=== PATIENT | male | born 1955 | race Caucasian/White ===

== ENCOUNTER → 2019-09-08 10:10 | Outpatient (BNVA) | payer MEDICARE, OTHER, SELFPAY | PROVIDERS: Family Provider Family Medicine; PCP Family Medicine; Visit Provider Urology | DX: N41.1 Chronic prostatitis (principal); Z12.5 Encounter for screening for malignant neoplasm of prostate; N52.9 Male erectile dysfunction, unspecified | CPT/HCPCS: 81001 ==

== ENCOUNTER 2020-05-12 06:59 | Outpatient (CLI) | payer MEDICARE, OTHER, SELFPAY ==
--- NOTE | 2020-05-12 07:34 | USCV_ITS ---
José Antonio Ramírez Age: 64 Gender: M : 1955 Exam Date: 05/12/2020 07:47 Ordering Phys: Kimi Mccray NP Technologist: Emili Ross Exam Location: [facility] [place] Indication: Dizziness Risk Factors: None Previous Vascular Surgery: None Right Brachial BP: / Left Brachial BP: / Right Left Velocity (cm/s) Spectral Plaque Velocity (cm/s) Spectral Plaque Syst/Diast Broadening Syst/Diast Broadening 94.80/ 15.40 Prox CCA 87.50 / 15.40 112.50/19.20 Mid CCA 109.20/ 21.00 74.50/ 16.90 Distal CCA 88.90 / 17.00 67.00/ 15.60 Prox ICA 93.90 / 16.40 70.80/ 20.90 Mid ICA 88.80 / 17.80 73.70/ 25.30 Distal ICA 66.60 / 18.70 112.20 ECA 109.80 0.66 ICA/CCA 0.86 Antegrade Vertebral Antegrade 80.60/ 18.30 cm/s 80.40/ 18.70 cm/s Bi Subclavian Bi 96.10 132.1 0 CONCLUSIONS Right ICA stenosis <50%. Mild atheromatous plaque right carotid bulb/ICA. Left ICA stenosis <50%. Mild atheromatous plaque left carotid bulb/ICA. Normal antegrade Doppler flow noted in the right vertebral artery. Normal antegrade Doppler flow noted in the left vertebral artery. Kendall Neely MD (Electronically Signed) Final Date: 12 May 2020 10:26 S
== END 2020-05-12 07:00 | disposition home or self-care (01) ==
LOC: US 06:59
PROVIDERS: PCP Nurse Practitioner Family; Visit Provider Nurse Practitioner Family
DX: R42 Dizziness and giddiness (principal); I65.23 Occlusion and stenosis of bilateral carotid arteries
CPT/HCPCS: 93880

== ENCOUNTER → 2020-09-09 08:14 | Outpatient (BNVA) | payer MEDICARE, OTHER, SELFPAY | PROVIDERS: PCP Nurse Practitioner Family; Visit Provider Urology | DX: N52.9 Male erectile dysfunction, unspecified (principal); N41.1 Chronic prostatitis; Z12.5 Encounter for screening for malignant neoplasm of prostate | CPT/HCPCS: 81003; G0103 ==

== ENCOUNTER 2020-10-14 08:15 | Outpatient (CLI) | payer MEDICARE, OTHER, SELFPAY ==
--- NOTE | 2020-10-14 08:25 | XR_ITS ---
WS: [id number] LUMBAR SPINE: 5 VIEWS TECHNIQUE: AP, obliques, lateral and L5-S1 spot. HISTORY: LUMBAR RADICULOPATHY COMPARISON: None available. Normal lumbar alignment. Mild facet joint arthritis at L4-5 and L5-S1. No fractures. Small endplate o steophytes. No foraminal stenosis. Disc spaces are preserved. Pedicles are intact. SI joints are symmetric bilaterally. No soft tissue abnormalities. Moderate atherosclerosis aorta. XR/XR lumbar spine min 4V [id number] IMPRESSION: 1. No acute lumbar spine fracture. 2. Mild lumbar spondylosis. 3. Atherosclerosis aorta.
== END 2020-10-14 08:16 | disposition home or self-care (01) ==
PROVIDERS: PCP Nurse Practitioner Family; Visit Provider Nurse Practitioner Family
DX: M54.16 Radiculopathy, lumbar region (principal); M47.816 Spondylosis without myelopathy or radiculopathy, lumbar region; I70.0 Atherosclerosis of aorta
CPT/HCPCS: 72110

== ENCOUNTER 2020-12-27 07:45 | Outpatient (CLI) | payer MEDICARE, OTHER, SELFPAY ==
--- NOTE | 2020-12-27 08:07 | MR_ITS ---
WS: [id number] MRI LUMBAR SPINE NONCONTRAST HISTORY: LUMBAR BACK PAIN COMPARISON: None available. TECHNIQUE: Sagittal and axial multisequence imaging is submitted. Slight increase in the thoracic kyphosis. No cord compression in the cervical or thoracic spines. Mild LEFT curvature lower lumbar vertebral bodies. Posterior alignment is normal. No marrow edema or fracture. Conus terminates normally at L1-2 disc level. L1-L2: Normal. L2-L3: Normal. L3-L4: Mild ligamentum flavum hypertrophy and facet arthritis. No focal disc protrusions or stenosis. L4-L5: Mild ligamentum flavum hypertrophy and facet arthritis. No focal disc protrusions. Very slight encroachment into the foramen. No high-grade stenosis. L5-S1: Mild disc bulging with a very shallow LEFT foraminal disc protrusion which does not displace t he nerve roots. There is very slight encroachment upon the LEFT L5 and S1 nerve roots. Mild atherosclerosis aorta. MR/MR lumbar spine wo con* [id number] IMPRESSION: 1. No significant central or foraminal stenosis. 2. Mild encroachment upon the LEFT L5 and S1 nerve roots but no displacement. Mild atherosclerosis aorta.
== END 2020-12-27 07:46 | disposition home or self-care (01) ==
PROVIDERS: PCP Nurse Practitioner Family; Visit Provider Nurse Practitioner Family
DX: M54.5 Low back pain (principal); I70.0 Atherosclerosis of aorta
CPT/HCPCS: 72148

== ENCOUNTER 2021-02-08 07:38 | Outpatient (CLI) | payer MEDICARE, OTHER, SELFPAY ==
--- NOTE | 2021-02-08 07:43 | USCV_ITS ---
José Antonio Ramírez Age: 65 Gender: M : 1955 Exam Date: 02/08/2021 08:08 Ordering Phys: Kimi Mccray NP Technologist: JUDE [place] [facility] [place]ication: LEG PAIN Risk Factors: None Previous Vascular Surgery: None RIGHT LEFT BP: 127.0 / 66.00 BP: 131.0/ 65.00 0 0 Waveform Velocity (cm/s) Velocity (cm/s) Waveform Biphasic 158.5 Iliac Prox 237.2 Triphasic Biphasic 156.9 Iliac Mid 233.2 Triphasic Biphasic 108.8 Iliac Distal 257.5 Triphasic Biphasic 122.7 PUBLIC HEALTH WORKER 186.8 Biphasic Biphasic 102.5 SFA Prox 123.0 Biphasic Biphasic 107.2 SFA Mid 118.5 Biphasic Biphasic 199.7 SFA Dist 252.9 Biphasic Biphasic 79.2 POP 88.9 Biphasic Biphasic 84.5 MAIL SUPERINTENDENT 50.1 Biphasic Biphasic 36.0 DPA 50.1 Biphasic ELMER 0.9 1.0 FINDINGS RT BRACH 127/66 LT 131/65 RT MAIL SUPERINTENDENT 130 RT MAIL SUPERINTENDENT RT DP 120 LT MAIL SUPERINTENDENT .120 LT DP 118 Resting ELMER on the right side. Slightly diminished resting ELMER on the left side. Elevated #1. Doppler flow velocities at the level of the left distal iliac and distal superficial femoral artery CONCLUSIONS 1. Mildly diminished resting ELMER on the left side, suggestive of mild peripheral artery disease. However the elevated Doppler velocities in the distal iliac and distal superficial femoral artery are suggestive of greater than 50% stenosis at these segments. Consider exercise ELMER to better evaluate the functional significance. 2. Normal resting ELMER and near normal Doppler flow velocities on the right side, suggesting no significant arterial obstruction. No similar previous studies are available for comparison Dr Nixon Hernandez MD [facility] (Electronically Signed) Final Date: 08 February 2021 09:55 S
== END 2021-02-08 07:39 | disposition home or self-care (01) ==
LOC: US 07:40
PROVIDERS: PCP Nurse Practitioner Family; Visit Provider Nurse Practitioner Family
DX: M79.605 Pain in left leg (principal); R07.9 Chest pain, unspecified
CPT/HCPCS: 93925

== ENCOUNTER 2021-04-07 07:49 | Outpatient (CLI) | payer MEDICARE, OTHER, SELFPAY ==
[2021-04-07 08:30] LABS: Blood Urea Nitrogen 42 mg/dL (8-23); Glomerular Filtration Rate 33.5 mL/min (90-130)
== END 2021-04-07 07:50 | disposition home or self-care (01) ==
LOC: RADWPI 07:51
PROVIDERS: PCP Nurse Practitioner Family; Visit Provider Internal Medicine Cardiovascular Disease
DX: I73.9 Peripheral vascular disease, unspecified (principal)
CPT/HCPCS: 82565; 84520

== ENCOUNTER → 2021-04-18 09:36 | Outpatient (BNVA) | payer MEDICARE, OTHER, SELFPAY | PROVIDERS: PCP Nurse Practitioner Family; Referring Provider Internal Medicine Cardiovascular Disease; Visit Provider Internal Medicine Cardiovascular Disease | DX: I73.9 Peripheral vascular disease, unspecified (principal); Z20.822 Contact with and (suspected) exposure to COVID-19 | CPT/HCPCS: 87635 ==

== ENCOUNTER 2021-04-21 11:56 | Inpatient (IN) | payer MEDICARE, OTHER, SELFPAY ==
[2021-04-21 12:25] VITALS: BMI 22.0
[2021-04-21 13:25] VITALS: PULSE 82; O2SAT 99
[2021-04-21 13:37] VITALS: BP 127/60; PULSE 76; RESP 16; TEMP 36.9; O2SAT 97
[2021-04-21] MEDS: sodium chloride 0.9% 1,000 ML 100 ML IV (13:56)
[2021-04-21 14:11] LABS: Basophils # 0.1 10^3/uL (0.0-0.1); Basophils % 0.6 %; Eosinophils # 0.2 10^3/uL (0.0-0.8); Eosinophils % 2.1 %; Hematocrit 33.2 % (42.0-52.0); Hemoglobin 11.4 g/dL (11.7-16.6); Lymphocytes # 2.4 10^3/uL (0.8-4.8); Lymphocytes % 23.2 %; Mean Corpuscular HGB Conc 34.3 g/dL (30.0-36.0); Mean Corpuscular Hemoglobin 34.2 pg (28.0-34.0); Mean Corpuscular Volume 99.7 fl (80-94); Mean Platelet Volume 9.9 fL (7.4-10.4); Monocytes # 1.1 10^3/uL (0.2-0.9); Monocytes % 10.9 %; Neutrophils # 6.51 10^3/uL (1.8-7.7); Neutrophils % 62.2 %; Nucleated Red Blood Cells % 0 %; Platelet Count 288 10^3/cmm (130-400); Red Blood Count 3.33 10^6/uL (4.1-5.3); Red Cell Distribution Width 12.1 % (12.1-15.1); White Blood Count 10.5 10^3/uL (4.0-10.0)
[2021-04-21 14:44] LABS: Anion Gap 16.7 (5-19); Blood Urea Nitrogen 22 mg/dL (8-23); Calcium 8.6 mg/dL (8.5-10.5); Carbon Dioxide 22 mmol/L (22-29); Chloride 94 mmol/L (98-107); Glomerular Filtration Rate 50.5 mL/min (90-130); Glucose 94 mg/dL (65-115); Osmolality Calculated 269 mOsm/kg (285-295); Potassium 4.7 mmol/L (3.5-5.1); Sodium 128 mmol/L (136-145)
[2021-04-21 16:00] VITALS: BP 127/65; PULSE 74; RESP 18; TEMP 37; O2SAT 97
--- NOTE | 2021-04-21 18:14 | PM.HP ---
Providers/Chief Complaint Admitting Physician: Cara Christianson MD Primary Care Provider: Kimi Mccray NP Chief Complaint: 41415 I73.9 History of Present Illness José Antonio Ramírez is a 65 year old male past medical history significant for continuous hypertension hyperlipidemia erectile dysfunction history of CVA for lifestyle limiting claudication abnormal vascular ultrasound after failing cilostazol was brought in here for peripheral angiogram. Patient has abnormal renal function with chronic renal failure. He was not able to perform CTA in order to minimize the dye load. Today he is brought in for IV fluid rehydration. His baseline creatinine is improved from 2.0-1.4. He has been admitted to the surgical floor for IV hydration tonight I will start patient on 100 mL/h for the next 12 hours normal saline. He is scheduled to undergo peripheral angiogram with intervention tomorrow. 1. Mildly diminished resting ELMER on the left side, suggestive of mild peripheral artery disease. However the elevated Doppler velocities in the distal iliac and distal superficial femoral artery are suggestive of greater than 50% stenosis at these segments. Consider exercise ELMER to better evaluate the functional significance. 2. Normal resting ELMER and near normal Doppler flow velocities on the right side, suggesting no significant arterial obstruction. No similar previous studies are available for comparison Dr Nixon Hernandez MD [facility] (Electronically Signed) Final Date: 08 February 2021 09:55 S Medications/Allergies Home Medications Medication Instructions Recorded Confirmed Last Taken Type doxepin 25 mg capsule 25 mg PO DAILY 09/08/19 04/21/21 Unknown History tramadol 50 mg tablet 50 mg PO Q6H PRN 09/08/19 04/21/21 04/21/21 History amlodipine 2.5 mg tablet 2.5 mg PO DAILY 03/28/21 04/21/21 04/21/21 History aspirin 81 mg tablet,delayed 243 mg PO DAILY tab 03/28/21 04/21/21 04/21/21 History release atorvastatin 40 mg tablet 40 mg PO DAILY 03/28/21 04/21/21 04/20/21 History chlorthalidone 25 mg tablet 12.5 mg PO DAILY tab 03/28/21 04/21/21 04/21/21 History aspirin 325 mg PO DAILY #90 tab 04/22/21 Unknown Rx clopidogrel 75 mg PO DAILY #90 tab 04/22/21 Unknown Rx Allergies Allergy/AdvReac Type Severity Reaction Status Date / Time No Known Allergies Allergy Unverified 10/02/19 15:41 PFSH Acute PFSH: Medical History (Updated 04/23/21 @ 00:01 by ) Chronic prostatitis Claudication of both lower extremities Erectile dysfunction History of CVA (cerebrovascular accident) HTN (hypertension) Renal failure Surgical History History of appendectomy History of prostate surgery microwave S/P carpal tunnel release Family History Mother , at age 80- No problems noted. Social History Smoking and tobacco status: current every day smoker (1ppd X40 years) Alcohol intake: current Alcohol intake frequency: holidays/special occasions only Marital status: Current occupational status: employed Vitals/I&O/Wt Last Vital Signs Temp 98.6 F 04/21/21 16:00 Pulse 74 04/21/21 16:00 Resp 18 04/21/21 16:00 BP 127/65 04/21/21 16:00 Pulse Ox 97 04/21/21 16:00 04/21/21 04/21/21 04/21/21 06:59 14:59 22:59 Output Total 600 / 600 Balance -600 / -600 Weight last 48 hrs Weight 140 lb 9.6 oz Physical Exam Narrative: EXAM NARRATIVE: GENERAL: Patient is alert, awake and oriented x3. NECK: No jugular vein distension. HEENT: No cyanosis. No icterus. No pallor. HEART: Regular S1 and S2. No murmur, rub or gallop. LUNGS: Clear to auscultate bilaterally. ABDOMEN: Soft, nontender and nondistended. Positive bowel sounds. No guarding, rebound or tenderness. CENTRAL NERVOUS SYSTEM: Grossly nonfocal. EXTREMITIES: Lower extremities without edema bilaterally. Pulses not palpable in the lower extremities, both dorsalis pedis and posterior tibial. Data : 04/21/21 13:45 04/22/21 02:10 A&P Assessment and plan (1) Claudication of both lower extremities: For worsening of lifestyle limiting claudication and failing conservative management patient is here for peripheral angiogram patient has been explained all risk benefit and already for the procedure he understand the risk for major minor bleed requiring transfusion, urgent emergent vascular surgery, thromboembolic phenomena, acute limb threatening ischemia and amputation. Patient is high risk for contrast-induced nephropathy leading to transient and permanent dialysis. He would like to proceed with it. Patient was explained regarding FDA warning of drug-coated balloon as it may increase mortality in subset groups. He says if required he would like to use it. Status: Resolved (2) HTN (hypertension): Status: Acute Qualifiers: Hypertension type: essential hypertension Qualified Code(s): I10 - Essential (primary) hypertension (3) Renal failure: I will start normal saline 100 mL/h for next 12 hours. Will check creatinine in the morning. Status: Resolved Qualifiers: Acute renal failure type: with other specified pathological lesion Chronic kidney disease stage: stage 3 (moderate) Chronic kidney disease stage 3 subtype: stage 3b (GFR 30-44) Renal failure chronicity: acute on chronic Qualified Code(s): N17.8 - Other acute kidney failure; N18.32 - Chronic kidney disease, stage 3b Attestations Medical Necessity Statement*: Patient has history of chronic kidney disease he is going for peripheral angiogram. I am expecting a state across more than 2 midnights he may will be needing close monitoring of her peripheral angiogram for worsening of kidney function. Coding Level of Care Code New Pt Acute Church Business Administrator for [employer] Patient Type New History Detailed Exam Detailed Medical Decision Making Moderate Complexity Diagnoses Claudication of both lower extremities I73.9 HTN (hypertension) I10 Hypertension type: essential hypertension Renal failure N17.8; N18.32 Acute renal failure type: with other specified pathological lesion Chronic kidney disease stage: stage 3 (moderate) Chronic kidney disease stage 3 subtype: stage 3b (GFR 30-44) Renal failure chronicity: acute on chronic
--- NOTE | 2021-04-21 18:50 | PC.NURSE ---
Report to Radha ROSEN at this time.
[2021-04-21 20:35] VITALS: BP 121/55; PULSE 69; RESP 18; TEMP 37.3; O2SAT 96
[2021-04-21 21:26] VITALS: PULSE 69
[2021-04-22] VITALS (25 sets, daily range): BP systolic 119–146; BP diastolic 60–80; PULSE 56–157; RESP 9–21; TEMP 36.8–37.5; O2SAT 94–99
[2021-04-22] MEDS: sodium chloride 0.9% 1,000 ML 100 ML IV (00:05)
[2021-04-22 03:16] LABS: Anion Gap 14.4 (5-19); Blood Urea Nitrogen 19 mg/dL (8-23); Calcium 8.2 mg/dL (8.5-10.5); Carbon Dioxide 22 mmol/L (22-29); Chloride 100 mmol/L (98-107); Glomerular Filtration Rate 66.8 mL/min (90-130); Glucose 90 mg/dL (65-115); Osmolality Calculated 276 mOsm/kg (285-295); Potassium 4.4 mmol/L (3.5-5.1); Sodium 132 mmol/L (136-145)
--- NOTE | 2021-04-22 06:00 | XACV_ITS ---
Ht: 170 cm Wt: 65 kg BSA: 1.75 m2 Gender: Male : 1955 Exam Type: Invasive Peripheral Vascular Procedure(s): Procedure Description: Peripheral Cath Diagnostic Procedure Procedure Description: Abdominal aortic angiography Procedure Description: Lower extremities' angiography Procedure Description: Peripheral vascular Intervention Procedure Description: PV Balloon Procedure Description: Upper Extremity Arteriography Exam Priority: Routine Lower Extremity Interventional Findings Right common femoral artery approach was adopted after placing the long 6 [place] sheath with the help of Glidewire and seeker I was able to cross the left mid SFA lesion. It was treated with balloon angioplasty. Excellent angiographic result with good flow was observed in the left SFA and good three-vessel runoff was noted all the way to left foot. For balloon size and dilation PIPPA please see inventory.. Conclusions Clinical indication: Lifestyle limiting claudication of the left legAbdominal aortic angiogram: Abdominal aorta without significant stenosis or aneurysm. Left renal artery was well visualized due to suboptimal placement of catheter right renal artery was not well visualized.Bilateral common iliac arteries has luminal irregularity. Bilateral external and internal iliac arteries has luminal irregularities. Bilateral common femoral artery has luminal irregularity bilateral profunda femoral arteries has luminal irregularity right SFA, popliteal, tibioperoneal trunk do not have any significant stenosis. Three-vessel runoff below right knee noted.Left SFA has mid short segment of moderate to severe eccentric stenosis, left popliteal artery has luminal irregularity, left tibioperoneal trunk has luminal irregularity. Below left knee good three-vessel runoff was noted.. null was treated with Balloon. Recommendations 1-Return to inpatient for close monitoring and routine cath care2-Risk factor modification for secondary prevention3-Statin and aspirin 81 mg life--long, if tolerated 4- C ontinue Plavix 75mg p.o. daily for three months . 5-Continue optimal medical management6-Follow up with Dr. Christianson in four weeks and your primary care in 10 days. Hemodynamic Data Phase:Rest AO : 88.0 / 61.0 ( 69.0 ) @ 7:25:00 AM Access Site Site: Right Femoral artery Sheath Size: 6 Fr Hemost... Method: Mynx Hemost... Success: Successful Procedure Details Findings Procedure Consent Obtained. Admit Source: In Patient. Identified patient by full name and date of as verbalized by the patient/guarantor. Does the consent match the physician's order: Yes. Accurate & Complete Informed Consent: Yes. Inpatient/Outpatient History & Physical on Chart: Yes. If H&P is completed, is and addenduem needed: No; If yes, is the addendum complete: N/A. Relevant Radiology Images available: Yes. Pre-op teaching completed and patient verbalized understanding. The risks, benefits, and alternatives of sedation and/or procedure were discussed by physician. The patient agrees to continue. Procedure started. PERRLA. Strong, equal hand bakery helper bilaterally. Lungs clear x 5 lobes. IV Site on Arrival: 22 gauge in the left forearm. IV Site on Arrival: 20 gauge in the right anticubital. IV Fluids: 0.9% NaCl at KVO. 75 mL infused prior to lab director. Oxygen started at 2liters/min via nasal canula. Pre Procedural Pulses: right dorsalis pedis was 3+. Pre Procedural Pulses: right posterior tibial was 3+. Pre Procedural Pulses: left dorsalis pedis was 1+. Pre Procedural Pulses: left posterior tibial was doppled. Physician notified. right groin was prepped with chloroprep then draped in the usual sterile fashion. left groin was prepped with chloroprep then draped in the usual sterile fashion. Baseline sample Acquired. HR: 91 BPM. Physician arrived. Physician scrubbed in. Time out performed with cath team. Lidocaine 1% infiltrated to the right groin. A 5F UF catheter in over wire. Bilateral Abdominal runoff performed in AP @ 10 mL/sec for a total of 30 mL. Glidewire out. Left external iliac selected and arteriogram with runoff performed @ 10 mL/sec for a total of 30 mL. Glidewire in. Catheter removed over the glide wire. 6Fr short sheath exchanged for 6Fr Flexor sheath. Balloon inserted over the wire to the superficial femoral. Inflation number : 1 A AB ARMADA 35 OTW [id number] was prepped and advanced across the Mid Superficial Femoral, Left , then inflated to 8 PIPPA for 2:01 seconds. Balloon out over wire. Results checked. 6Fr Flexor exchanced for short 6Fr sheath. Right common femoral selected and arteriogram with runoff performed @ 10 mL/sec for a total of 30 mL. A Mynx was successful obtaining hemostatsis at the Right Femoral artery insertion site. Post Procedure: Pulses reassessed and unchanged. PERRLA. Strong, equal hand bakery helper bilaterally. No VTE prophylaxis required. Estimated blood loss: 5mL-10mL. Procedure completed. Patient transferred by bed to 1st floor. Medication's Wasted: Lidocaine 1% = 3 mL. Medication's Wasted: Nitro = 49.6 mg. Medication's Wasted: Heparin = 1000u. Medication's Wasted: Fentanyl = 50 mcg. Total IV fluids: 268 mL. Vital chart was stopped. Procedure Medications Start: 7:56 AM Stop: 7:56 AM Medication: Fentanyl Amount: 25 mcg Route: I.V. Start: 7:56 AM Stop: 7:56 AM Medication: Versed Amount: 1 mg Route: I.V. Start: 7:57 AM Stop: 7:57 AM Medication: Versed Amount: 1 mg Route: I.V. Start: 8:01 AM Stop: 8:01 AM Medication: Fentanyl Amount: 25 mcg Route: I.V. Start: 8:04 AM Stop: 8:04 AM Medication: Versed Amount: 1 mg Route: I.V. Start: 8:11 AM Stop: 8:11 AM Medication: Heparin Amount: 5000 units Route: I.V. Start: 8:16 AM Stop: 8:16 AM Medication: Versed Amount: 1 mg Route: I.V. Start: 8:22 AM Stop: 8:22 AM Medication: Nitrogylcerin Amount: 400 mcg Route: I.A. I, the attending physician, have reviewed and verified all procedure medications. Yes, all medications given per verbal order History/Risk Factors Hypertension: Yes Dyslipidemia: No Peripheral Arterial Disease (PAD): Yes Obesity: No Renal Disease: No Tobacco Use: Current/Recent(w/in 1 year) Prior Interventions PCI: No CABG: No Valve Surgery: No Report Signatures Finalized by Cara Christianson MD on 05/09/2021 03:57 PM
--- NOTE | 2021-04-22 06:27 | PC.NURSE ---
Patient AAOx4, calm and cooperative, VSS, pre-cath check list in place and started. No new events over night, no needs at this time. Room clutter free and call light in reach, handoff and report to oncoming nurse at shift change.
--- NOTE | 2021-04-22 07:53 | W.PM.OPSUD ---
Surgery/Procedure H&P Update DATE OF PROCEDURE: April 22, 2021 DATE H&P PERFORMED: 04/21/21 H&P UPDATE INFORMATION: I have reviewed H&P completed within last 30 days, I have examined patient prior to procedure and No changes to prior documentation PLANNED PROCEDURE: Operation Date: 04/22/21 07:00 Proposed Procedures p Peripheral Diagnostic(Bilateral) - Cara Christianson MD PATIENT REASSESSED PRIOR TO SEDATION, WITH NO CHANGE NOTED: Yes PHYSICAL EXAM: alert, oriented x 3 and clear to auscultation bilaterally AIRWAY EVAL/ANESTHESIA PLAN: ASA II, Risks, benefits & alternatives of sedation and/or procedure discussed and Patient agrees to continue as planned
--- NOTE | 2021-04-22 09:06 | PC.NURSE ---
received from cardiac technology lab teacher via bed,into room 108 at 0855.report received.pt is sleepy but easily awakened.sr on monitor.denies pain at present.right femoral arterial sheath was pulled in technology lab teacher and closed using minx device.right groin drsg is dry and intact.no hematoma noted.palpable pt and dp pulses are palpable bilat.pt instructed in activity restrictions s/p femoral artery procedure..and instructed to notify staff for any bleeding,pain,numbness..or for any concerns at all.pt verb understanding of instructions
[2021-04-22] MEDS: clopidogrel 300 mg Tablet PO (09:21)
[2021-04-22] MEDS: sodium chloride 0.9% 1,000 ML 150 ML IV (09:22)
[2021-04-22] MEDS: amlodipine 5 mg Tablet 2.5 MG PO (10:17)
[2021-04-22] MEDS: atorvastatin 40 mg Tablet PO (10:17)
--- NOTE | 2021-04-22 15:42 | PC.NURSE ---
Discharge Note Patient discharged to [home] via [w/c] accompanied by [friend]. Discharge instructions reviewed with patient and/or telecommunications sales representative. Mobile pharmacy medications and/or prescriptions provided. Belongings/home medications returned.
--- NOTE | 2021-04-22 15:43 | PC.NURSE ---
on bedrest for 4 hours.ambulated in cronin.vss.no hematoma formation noted in right groin.
--- NOTE | 2021-04-22 16:37 | PC.RESP ---
SMOKING CESSATION INFORMATION SENT TO PATIENT.
--- NOTE | 2021-04-25 08:54 | PC.SOCIAL ---
discharge follow up call made. spoke with pts . they picked up new medications from the pharmacy and patient is taking as directed. follow up appointment dates and times given to . wrote down appointments and is aware of location. went over with that patient isn't to be lifting more than a gallon of milk for the next 2 days, verbalized understanding. no questions or concerns voiced.
== END 2021-04-22 15:42 | disposition home or self-care (01) | DRG 300 ==
LOC: CCL 11:59 → MEDSURG 12:18 → CSU 04-22 08:33
PROVIDERS: Admitting Provider Internal Medicine Cardiovascular Disease; PCP Nurse Practitioner Family; Visit Provider Internal Medicine Cardiovascular Disease
DX: I73.9 Peripheral vascular disease, unspecified (principal); N17.8 Other acute kidney failure; N52.9 Male erectile dysfunction, unspecified; E78.5 Hyperlipidemia, unspecified; I12.9 Hypertensive chronic kidney disease with stage 1 through stage 4 chronic kidney disease, or unspecified chronic kidney disease; F17.210 Nicotine dependence, cigarettes, uncomplicated; N18.32 Chronic kidney disease, stage 3b; Z86.73 Personal history of transient ischemic attack (TIA), and cerebral infarction without residual deficits; Z79.82 Long term (current) use of aspirin; Z90.49 Acquired absence of other specified parts of digestive tract
CPT/HCPCS: 36415; 37224; 75625; 75716; 80048; 85025; 87635; C1725; C1760; C1769; C1887; C1894; J1644; J2250; J3010; J3490; J7030; Q9967

== ENCOUNTER → 2021-05-03 10:01 | Outpatient (BNVA) | payer MEDICARE, OTHER, SELFPAY | PROVIDERS: PCP Nurse Practitioner Family; Visit Provider Nurse Practitioner Family | DX: I73.9 Peripheral vascular disease, unspecified (principal) | CPT/HCPCS: 80048 ==

== ENCOUNTER 2021-06-17 07:31 | Outpatient (CLI) | payer MEDICARE, OTHER, SELFPAY ==
--- NOTE | 2021-06-17 08:00 | USCV_ITS ---
José Antonio Ramírez Age: 65 Gender: M : 1955 Exam Date: 06/17/2021 07:41 Ordering Phys: Cara Christianson MD ([email or web address]) Technologist: DINORAH ALFRED [place] [facility] [place] Indication: RECHECK OF CCA STENOSIS Risk Factors: Unknown Previous Vascular Surgery: None Right Brachial BP: / Left Brachial BP: / Right Left Velocity (cm/s) Spectral Plaque Velocity (cm/s) Spectral Plaque Syst/Diast Broadening Syst/Diast Broadening 88.20/ 23.20 Prox CCA 128.80/ 27.60 112.50/23.20 Mid CCA 147.20/ 32.90 116.90/20.90 Hetro Distal CCA 152.50/ 32.90 119.10/19.80 Hetro Prox ICA 98.20 / 17.00 143.30/19.70 Mid ICA 138.00/ 26.30 139.30/43.40 Distal ICA 89.20 / 20.60 140.00 Hetro ECA 138.00 1.27 ICA/CCA 0.94 Antegrade Vertebral Antegrade 76.20/ 11.80 cm/s 81.40/ 26.40 cm/s Tri Subclavian Tri 113.1 277.3 0 0 CONCLUSIONS Right ICA stenosis approaching 50%. Moderate calcified atheromatous plaque right carotid bulb/ICA. Left ICA stenosis <50%. Moderate calcified atheromatous plaque left carotid bulb/ICA. Normal antegrade Doppler flow noted in the right vertebral artery. Normal antegrade Doppler flow noted in the left vertebral artery. Kendall Neely MD (Electronically Signed) Final Date: 17 June 2021 17:50 S
== END 2021-06-17 07:32 | disposition home or self-care (01) ==
LOC: US 07:32
PROVIDERS: PCP Nurse Practitioner Family; Visit Provider Internal Medicine Cardiovascular Disease
DX: I65.23 Occlusion and stenosis of bilateral carotid arteries (principal)
CPT/HCPCS: 93880

== ENCOUNTER 2021-12-27 07:24 | Outpatient (CLI) | payer MEDICARE, OTHER, SELFPAY ==
--- NOTE | 2021-12-27 07:34 | CT_ITS ---
WS: [id number] LDCT LUNG CANCER SCREENING TECHNIQUE: Noncontrast CT of the chest with coronal and sagittal reformatted images. CLINICAL INFORMATION: HX OF TOBACCO USE COMPARISON: CT chest 4 29,016 DLP: 58.94 mGy.cm DIvol: Mean CTDIvol: 1.58 (mGy) All CT scans at [facility] use at least one of these dose optimization techniques: automat ed exposure control; mA and/or kV adjustment per patient size (includes targeted exams where dose is matched to clinical indication); or iterative reconstruction. FINDINGS: Noncalcified 6 mm nodule RIGHT upper lobe is new from 2015]. Recommend 6 month follow-up. Subsegmenta l atelectasis in RIGHT middle lobe. Mild subpleural reticular opacities in the lung bases likely infl ammatory. No focal pneumonia or pleural fluid. Aortic calcification. Ectatic ascending thoracic aorta measuring 4.1 CM. Coronary calcification. No a xillary lymphadenopathy. No mediastinal or hilar lymphadenopathy. Adrenal glands are normal. Cholelithiasis. Normal GE junction. Mild thoracic kyphosis. CT/CT lung screening [id number] IMPRESSION: Ectatic ascending thoracic aorta measuring 4.1 CM. Cholelithiasis. LUNG-RADS: 3S-Probably Benign with Significant Findings FOLLOW UP: 6 Month LDCT
== END 2021-12-27 07:25 | disposition home or self-care (01) ==
LOC: RAD 07:26
PROVIDERS: PCP Nurse Practitioner Family; Visit Provider Nurse Practitioner Family
DX: Z12.2 Encounter for screening for malignant neoplasm of respiratory organs (principal); Z87.891 Personal history of nicotine dependence; I77.810 Thoracic aortic ectasia; K80.20 Calculus of gallbladder without cholecystitis without obstruction
CPT/HCPCS: 71271

== ENCOUNTER 2022-01-04 06:58 | Outpatient (CLI) | payer MEDICARE, OTHER, SELFPAY ==
--- NOTE | 2022-01-04 | USCV_ITS ---
José Antonio Ramírez Age: 66 Gender: M : 1955 Exam Date: 01/04/2022 07:21 Ordering Phys: Kimi Mccray NP Technologist: HUE Exam Location: [facility] [place] Indication: AAA SCREENING, H/O SMOKING HISTORY: Diameter (cm) AP x Transverse x Length Velocity (cm/s) Waveform Prox Aorta: 2.30 x 2.40 x 95.00 Triphasic Mid Aorta: 1.86 x 1.90 x 124.80 Triphasic Distal Aorta: 1.66 x 1.47 x 123.90 Triphasic Right Iliac Prox: 0.99 x 0.87 x 116.00 Triphasic Left Iliac Prox: 0.83 x 0.73 x 173.00 Triphasic Stent Prox Landing x x Aneurysmal Sac Max x x Lt Lat Sac Dim Rt Lat Sac Dim Stent Dist Landing x x Right Iliac Stent x x Left Iliac Stent x x Right Renal Art Left Renal Art FINDINGS: Mild diffuse plaques in the abdominal aorta Normal Doppler flow velocities in the aorta and in the proximal common iliac arteries CONCLUSIONS Mild diffuse plaques in the abdominal aorta. No evidence of aneurysm in the abdominal aorta or in the proximal common iliac arteries. No significant stenosis, based on the Doppler flow velocities No similar previous studies are available for comparison Dr Nixon Hernandez MD [facility] (Electronically Signed) Final Date: 04 January 2022 19:01 S
--- NOTE | 2022-01-04 | US_ITS ---
WS: [id number] Abdomen ultrasound, 01/04/2022 Clinical Data: ABD PAIN, ENLARGED SPLEEN Comparison: None. Findings: The pancreas shows no cyst, pseudocyst or evidence of pancreatitis. The liver shows no cysts, masses or dilated intrahepatic ducts. The liver measured 13.4 cm. The osmar l vein showed normal flow. The gallbladder has no stones or sludge. The wall measures 0.2 cm with no pericholecystic fluid. The common bile duct is 0.2 cm and no intraductal abnormalities are noted. The right kidney is 10.1 cm. No cysts, masses or hydronephrosis is seen. The left kidney is 10.6 cm. No cysts, masses or hydronephrosis is seen. The abdominal aorta is not dilated and the inferior vena cava has normal flow. No vascular abnormalit ies are seen. The spleen measures 10.1 cm and there are no intrasplenic masses or capsular abnormalities. US/US abdomen complete* [id number] Impression: Negative abdomen ultrasound.
== END 2022-01-04 06:59 | disposition home or self-care (01) ==
LOC: RAD 06:59
PROVIDERS: PCP Nurse Practitioner Family; Visit Provider Nurse Practitioner Family
DX: R16.1 Splenomegaly, not elsewhere classified (principal); R10.33 Periumbilical pain; F17.200 Nicotine dependence, unspecified, uncomplicated
CPT/HCPCS: 76700; 76706

== ENCOUNTER → 2022-05-16 10:31 | Outpatient (BNVA) | payer MEDICARE, OTHER, SELFPAY | PROVIDERS: PCP Nurse Practitioner Family; Visit Provider Internal Medicine Cardiovascular Disease | DX: I73.9 Peripheral vascular disease, unspecified (principal); I10 Essential (primary) hypertension; E78.5 Hyperlipidemia, unspecified; Z86.73 Personal history of transient ischemic attack (TIA), and cerebral infarction without residual deficits; F17.200 Nicotine dependence, unspecified, uncomplicated; N52.9 Male erectile dysfunction, unspecified | CPT/HCPCS: 99214 ==

== ENCOUNTER 2022-06-05 06:28 | Outpatient (CLI) | payer MEDICARE, OTHER, SELFPAY ==
--- NOTE | 2022-06-05 06:30 | CT_ITS ---
WS: [id number] CT CHEST WITH INTRAVENOUS CONTRAST HISTORY: fu on nodule and possible TAA TECHNIQUE: Contiguous 5 mm axial imaging performed on the thorax. Coronal and sagittal reformats are submitted. All CT scans at [facility] use at least one of these dose optimization techniques: automated exposure control; mA and/or kV adjustment per patient size (includes targeted exams where dose is matched to clinical indication); or iterative reconstruction. CONTRAST: Omnipaque 350; 95 mL IV. DLP: 637.64 mGy.cm COMPARISON: 12/27/2021 Lungs and central airway: Mild hyperexpansion from chronic emphysema. Previously described 6 mm nodul e which is noncalcified in the RIGHT upper lobe is unchanged. Mild peripheral pulmonary reticulations from interstitial lung disease. Subtle area of groundglass in the LEFT lower lobe. No pneumonia. Pleura: Normal. No pleural effusion. Heart and pericardium: Normal size heart with no pericardial effusion. Mediastinum and cory: Small RIGHT hilar lymph node measuring 9 mm. No new or enlarging lymph nodes. Vessels: Moderate atherosclerosis thoracic aorta. Very mild ectasia of the ascending aorta with a max imum diameter 4.0 cm. Extensive calcified plaque and intimal thickening in the descending aorta. Norm al size pulmonary artery. Moderate coronary artery calcifications. Chest wall and lower neck: No soft tissue masses. Upper abdomen: 6 mm low-attenuation nodule LEFT lobe of the liver. 2 small to characterize. Gallstone s were identified on the prior CT. Cannot be confirmed on this examination due to their small size. N o adrenal mass. Osseous structures: Increase in thoracic kyphosis. No destructive bone lesions. CT/CT chest w con* [id number] IMPRESSION: 1. No interval change 6 mm noncalcified RIGHT upper lobe nodule. Recommend fol low-up CT 6-12 months to document stability. 2. Ectatic, moderate atherosclerosis aorta. No aneurysm. 3. Chronic emphysema.
[2022-06-05 07:14] LABS: Alanine Aminotransferase 17 U/L (0-41); Albumin Level 4.2 g/dL (3.5-5.2); Alkaline Phosphatase 174 U/L (40-130); Anion Gap 15.1 (5-19); Aspartate Amino Transferase 19 U/L (0-40); Blood Urea Nitrogen 27 mg/dL (8-23); Calcium 9.3 mg/dL (8.5-10.5); Carbon Dioxide 24 mmol/L (22-29); Chloride 100 mmol/L (98-107); Chol HDL Ratio 2.82 mg/dL (1.0-5.00); Cholesterol 138 mg/dL (0-200); Globulin 2.7 g/dL (1.3-4.6); Glomerular Filtration Rate 46.5 mL/min (90-130); Glucose 121 mg/dL (65-115); HDL Cholesterol 49 mg/dL (60-100); LDL Cholesterol Calculated 69 mg/dL (50-129); LDL HDL Ratio 1.41 RATIO (0.00-3.22); Osmolality Calculated 284 mOsm/kg (285-295); Potassium 5.1 mmol/L (3.5-5.1); Sodium 134 mmol/L (136-145); Total Bilirubin 0.5 mg/dL (0.15-1.2); Total Protein 6.9 g/dL (6.6-8.7); Triglycerides 99 mg/dL (0-150)
[2022-06-05] MEDS: iohexol 350 mg/mL 100 mL Btl IV (07:28)
== END 2022-06-05 06:29 | disposition home or self-care (01) ==
LOC: RAD 06:29
PROVIDERS: PCP Family Medicine; Visit Provider Family Medicine
DX: R91.1 Solitary pulmonary nodule (principal); I71.20 Thoracic aortic aneurysm, without rupture, unspecified; I10 Essential (primary) hypertension; I73.9 Peripheral vascular disease, unspecified; J43.9 Emphysema, unspecified
CPT/HCPCS: 71260; 80053; 80061

== ENCOUNTER 2022-07-31 13:45 | Outpatient (CLI) | payer MEDICARE, OTHER, SELFPAY ==
--- NOTE | 2022-07-31 14:30 | MR_ITS ---
WS: [id number] MRI LUMBAR SPINE NONCONTRAST TECHNIQUE: Sagittal T1, T2 and STIR imaging. Axial T1 and T2 imaging. CLINICAL INFORMATION: persistent mid back pain after injury 1 year ago COMPARISON: December 27, 2020 FINDINGS: Mild lumbar curve. No acute compression. No high-grade central canal stenosis. L1-L2: Mild facet arthropathy. Spinal canal and foramen are patent. L2-L3: Mild annular bulging. Mild facet arthropathy. Spinal canal and foramen are patent. L3-L4: Mild annular bulging. Slight effacement of the ventral thecal sac. Small LEFT foraminal protru ron with mild LEFT foraminal narrowing. RIGHT foramen is patent. Mild facet arthropathy. L4-L5: Mild annular bulging. Spinal canal and foramen are patent. Mild facet arthropathy. L5-S1: Mild annular bulging with slight impingement traversing LEFT S1 nerve root in the subarticular recess. Mild facet arthropathy. Spinal canal and foramen are patent. Visualized pelvic bony structures: Normal. Paravertebral soft tissues: Normal. MR/MR lumbar spine wo con* [id number] IMPRESSION: Overall no significant changes since December 27, 2020 1. Small LEFT foraminal protrusion L3-L4 slightly contacts the exiting LEFT L3 nerve root. Recommend correlation LEFT L3 nerve root symptoms. 2. Mild annular bulging L4-L5 with slight narrowing of the RIGHT subarticular recess and encroachment traversing RIGHT L5 nerve root. 3. Annular bulging L5-S1 slightly impinges the traversing LEFT S1 nerve root i n the subarticular recess. 4. Mild facet arthropathy L3-L5.
== END 2022-07-31 13:46 | disposition home or self-care (01) ==
PROVIDERS: PCP Family Medicine; Visit Provider Family Medicine
DX: G89.29 Other chronic pain (principal); M51.26 Other intervertebral disc displacement, lumbar region; M47.816 Spondylosis without myelopathy or radiculopathy, lumbar region; M51.27 Other intervertebral disc displacement, lumbosacral region
CPT/HCPCS: 72148

== ENCOUNTER 2022-09-08 11:31 | Outpatient (CLI) | payer MEDICARE, OTHER, SELFPAY ==
[2022-09-08 12:39] LABS: PSA Screen - Urology 1.98 ng/mL (0-4)
== END 2022-09-08 11:32 | disposition home or self-care (01) ==
LOC: LAB 11:34
PROVIDERS: PCP Family Medicine; Visit Provider Urology
DX: Z12.5 Encounter for screening for malignant neoplasm of prostate (principal)
CPT/HCPCS: 36415; G0103

== ENCOUNTER → 2022-09-12 07:48 | Outpatient (BNVA) | payer MEDICARE, OTHER, SELFPAY | PROVIDERS: PCP Family Medicine; Visit Provider Urology | DX: N41.1 Chronic prostatitis (principal); Z12.5 Encounter for screening for malignant neoplasm of prostate; N52.9 Male erectile dysfunction, unspecified | CPT/HCPCS: 81003; 99213 ==

== ENCOUNTER → 2022-11-09 09:30 | Outpatient (BNVA) | payer MEDICARE, OTHER, SELFPAY | PROVIDERS: PCP Family Medicine; Visit Provider Family Medicine | DX: M54.9 Dorsalgia, unspecified (principal); G89.29 Other chronic pain; E78.5 Hyperlipidemia, unspecified; I10 Essential (primary) hypertension | CPT/HCPCS: 80048 ==

== ENCOUNTER → 2023-02-13 10:01 | Outpatient (BNVA) | payer MEDICARE, OTHER, SELFPAY | PROVIDERS: PCP Family Medicine; Visit Provider Internal Medicine Cardiovascular Disease | DX: I73.9 Peripheral vascular disease, unspecified (principal); E78.5 Hyperlipidemia, unspecified; Z86.73 Personal history of transient ischemic attack (TIA), and cerebral infarction without residual deficits; I12.9 Hypertensive chronic kidney disease with stage 1 through stage 4 chronic kidney disease, or unspecified chronic kidney disease; N18.9 Chronic kidney disease, unspecified; F17.200 Nicotine dependence, unspecified, uncomplicated | CPT/HCPCS: 99214 ==

== ENCOUNTER → 2023-05-08 09:07 | Outpatient (BNVA) | payer MEDICARE, OTHER, SELFPAY | PROVIDERS: PCP Family Medicine; Visit Provider Family Medicine | DX: N41.1 Chronic prostatitis (principal); E78.5 Hyperlipidemia, unspecified; I10 Essential (primary) hypertension; I71.20 Thoracic aortic aneurysm, without rupture, unspecified; R91.1 Solitary pulmonary nodule | CPT/HCPCS: 80053; 80061 ==

== ENCOUNTER 2023-08-13 08:20 | Outpatient (CLI) | payer MEDICARE, OTHER, SELFPAY ==
--- NOTE | 2023-08-13 09:30 | CT_ITS ---
WS: [email or web address] CT CHEST TECHNIQUE: Noncontrast CT of the chest with coronal and sagittal reformatted images. CLINICAL INFORMATION: f/u on nodule COMPARISON: CT chest 06/05/2022 DLP: 312.[address] scans at [facility] use at least one of these dose optimization techniques: automated e xposure control; mA and/or kV adjustment per patient size (includes targeted exams where dose is matc hed to clinical indication); or iterative reconstruction. FINDINGS: Chronic emphysematous changes. Stable 6 mm nodule RIGHT upper lobe. This does not appear significantl y changed compared to 06/05/2022. Recommend 12-month follow-up. Stable ectatic thoracic aorta. Aortic calcification. Coronary calcification. No mediastinal or hilar lymphadenopathy. No axillary lymphadenopathy. Adrenal glands are normal. Cholelithiasis. Normal GE junction. Fatty atrophy of the pancreas. Noncont rast spleen is normal. Mild thoracic kyphosis. IMPRESSION: 1. Stable 6 mm nodule in RIGHT upper lobe. Recommend 12-month follow-up. 2. Moderate chronic emphysematous changes. 3. Cholelithiasis.
== END 2023-08-13 08:21 | disposition home or self-care (01) ==
LOC: RAD 08:21
PROVIDERS: PCP Family Medicine; Visit Provider Family Medicine
DX: R91.1 Solitary pulmonary nodule (principal); J43.9 Emphysema, unspecified; K80.20 Calculus of gallbladder without cholecystitis without obstruction
CPT/HCPCS: 71250

== ENCOUNTER → 2023-11-07 11:36 | Outpatient (BNVA) | payer MEDICARE, OTHER, SELFPAY | PROVIDERS: PCP Family Medicine; Visit Provider Family Medicine | DX: I10 Essential (primary) hypertension (principal); N41.1 Chronic prostatitis; N52.9 Male erectile dysfunction, unspecified; Z12.5 Encounter for screening for malignant neoplasm of prostate | CPT/HCPCS: 80053; 80061 ==

== ENCOUNTER → 2024-03-07 09:02 | Outpatient (BNVA) | payer MEDICARE, OTHER, SELFPAY | PROVIDERS: PCP Family Medicine; Visit Provider Internal Medicine Cardiovascular Disease | DX: I10 Essential (primary) hypertension (principal); I73.9 Peripheral vascular disease, unspecified; I71.20 Thoracic aortic aneurysm, without rupture, unspecified; E78.5 Hyperlipidemia, unspecified; J31.0 Chronic rhinitis; Z86.73 Personal history of transient ischemic attack (TIA), and cerebral infarction without residual deficits; M54.9 Dorsalgia, unspecified; G89.29 Other chronic pain; G47.33 Obstructive sleep apnea (adult) (pediatric); Z72.0 Tobacco use | CPT/HCPCS: 99213 ==

== ENCOUNTER → 2024-05-07 08:19 | Outpatient (BNVA) | payer MEDICARE, OTHER, SELFPAY | PROVIDERS: PCP Family Medicine; Visit Provider Family Medicine | DX: I10 Essential (primary) hypertension (principal); I71.20 Thoracic aortic aneurysm, without rupture, unspecified; I73.9 Peripheral vascular disease, unspecified | CPT/HCPCS: 80053; 80061; 83735; 85025 ==

== ENCOUNTER 2024-08-07 11:58 | Outpatient (CLI) | payer MEDICARE, OTHER, SELFPAY ==
--- NOTE | 2024-08-07 12:30 | CT_ITS ---
WS: [email or web address] CT chest wo con [id number] HISTORY: f/u on lung nodule TECHNIQUE: Axial imaging performed through the thorax. Coronal and sagittal reformats are submitted. All CT scans at [facility] use at least one of these dose optimization techniques: automated exposure control; mA and/or kV adjustment per patient size (includes targeted exams where dose is mat ched to clinical indication); or iterative reconstruction. CONTRAST: Omnipaque 350; 100 mL IV. DLP: 311.57 mGy.cm COMPARISON: 12/27/2021, 08/13/2023, 06/05/2022 Lungs and central airway: Previously described noncalcified nodule in the RIGHT upper lobe is reident ified measuring 5 mm. No increase in size since 12/27/2021. Peripheral interstitial fibrosis. No new m ass or nodule. No pneumonia. Pleura: Normal. No pleural effusion. Heart and pericardium: Mild cardiomegaly. Scattered coronary artery calcifications. Mediastinum and cory: Small mediastinal and hilar lymph nodes. No increase in size or number of. Vessels: Mild ectasia and dilatation of the ascending aorta to 4.0 cm. Pulmonary artery is also mildl y prominent. Chest wall and lower neck: No soft tissue masses. Upper abdomen: Cholelithiasis. No acute cholecystitis. Normal adrenal glands. Osseous structures: Mild increase in thoracic kyphosis. CT/CT chest wo con [id number] IMPRESSION: 1. Long-term stability 5 mm noncalcified nodule RIGHT upper lobe. Return to an al lung screening CT evaluations. 2. Pulmonary fibrosis, stable. 3. Mild dilatation ascending aorta 4.0 cm, stable. 4. Cholelithiasis without acute cholecystitis. 5. No mediastinal or hilar adenopathy.
== END 2024-08-07 11:59 | disposition home or self-care (01) ==
LOC: RAD 12:01
PROVIDERS: PCP Family Medicine; Visit Provider Family Medicine
DX: R91.1 Solitary pulmonary nodule (principal); J84.10 Pulmonary fibrosis, unspecified; K80.20 Calculus of gallbladder without cholecystitis without obstruction; I51.7 Cardiomegaly; I25.10 Atherosclerotic heart disease of native coronary artery without angina pectoris; R91.8 Other nonspecific abnormal finding of lung field; M40.294 Other kyphosis, thoracic region
CPT/HCPCS: 71250; 80053; 80061; 83735; 85025

== ENCOUNTER → 2024-12-25 12:31 | Outpatient (BNVA) | payer MEDICARE, OTHER, SELFPAY | PROVIDERS: PCP Family Medicine; Visit Provider Internal Medicine Cardiovascular Disease | DX: I73.9 Peripheral vascular disease, unspecified (principal); I10 Essential (primary) hypertension; E78.5 Hyperlipidemia, unspecified; I70.90 Unspecified atherosclerosis; I71.20 Thoracic aortic aneurysm, without rupture, unspecified; Z79.82 Long term (current) use of aspirin; F17.200 Nicotine dependence, unspecified, uncomplicated; Z86.73 Personal history of transient ischemic attack (TIA), and cerebral infarction without residual deficits | CPT/HCPCS: 99214 ==

== ENCOUNTER 2025-05-22 07:38 | Outpatient (CLI) | payer MEDICARE, OTHER, SELFPAY ==
--- NOTE | 2025-05-22 08:00 | MR_ITS ---
WS: [email or web address] MRI LUMBAR SPINE NONCONTRAST TECHNIQUE: Sagittal T1, T2 and STIR imaging. Axial T1 and T2 imaging. CLINICAL INFORMATION: back pain COMPARISON: MRI lumbar 2021 FINDINGS: Mild lumbar curve. No acute compression. No high-grade central canal stenosis. Alignment appears unchanged compared to previous. L1-L2: Normal. L2-L3: Mild facet arthropathy. Spinal canal and foramen are patent. Tiny LEFT foraminal protrusion. L3-L4: Mild annular bulging. Slight narrowing LEFT subarticular recess. Tiny LEFT proximal foraminal protrusion with slight contact of the traversing LEFT L4 nerve root. Mild LEFT foraminal narrowing. Mild facet arthropathy L4-L5: Mild annular bulging. Slight narrowing RIGHT subarticular recess. Very tiny RIGHT foraminal protrusion. No significant nerve root impingement. Mild facet arthropathy. L5-S1: Mild annular bulging with impingement LEFT subarticular recess and traversing LEFT S1 nerve root. Small LEFT foraminal protrusion with mild LEFT foraminal narrowing. Mild facet arthropathy. Visualized pelvic bony structures: Normal. Paravertebral soft tissues: Normal. Adrenal glands are normal. MR/MR lumbar spine wo con* [id number] IMPRESSION: 1. Mild lumbar curve. No acute compression. No high-grade central canal stenos is. 2. Annular bulging L5-S1 slightly impinges the traversing S1 nerve root in the subarticular recess. This appears slightly progressed compared to previous. Re commend correlation LEFT S1 nerve root symptoms. 3. No other significant changes compared to previous 4. Small LEFT foraminal protrusion L3-4 slightly contacts the traversing LEFT L4 and exiting LEFT L3 nerve roots this appears stable compared to previous. 5. Slight narrowing of the RIGHT L4-5 subarticular recess unchanged. 6. Mild facet arthropathy worse at L4-L5 and L5-S1. 7. No other acute findings.
--- NOTE | 2025-05-22 09:15 | CT_ITS ---
WS: [email or web address] CT chest wo con [id number] HISTORY: fu on lung nodule TECHNIQUE: Axial imaging performed through the thorax. Coronal and sagittal reformats are submitted. All CT scans at [facility] use at least one of these dose optimization techniques: automated exposure control; mA and/or kV adjustment per patient size (includes targeted exams where dose is matched to clinical indication); or iterative reconstruction. CONTRAST: None DLP: 305.96 mGy.cm COMPARISON: None available. Lungs and central airway: Lungs are hyperinflated. Peripheral interstitial fibrosis. Stable 4.4 mm nodule at the RIGHT lung apex. New nodule measuring 5.9 mm superior segment LEFT lower lobe. Area of mild interstitial thickening and focal bronchiectasis periphery LEFT lower lobe is stable. Pleura: Normal. No pleural effusion. Heart and pericardium: Normal size heart with no pericardial effusion. Mediastinum and cory: No mediastinum or hilar adenopathy. Vessels: Ectatic thoracic aorta. Ascending aorta 4.1 cm in diameter is stable. Mildly prominent pulmonary artery. Chest wall and lower neck: No soft tissue masses. Upper abdomen: Normally distended gallbladder with cholelithiasis. Normal adrenal glands. Suprarenal aortic calcification. Calcification extends into the celiac axis. Osseous structures: No destructive process. CT/CT chest wo con [id number] IMPRESSION: 1. Stable 4.4 mm nodule at the RIGHT lung apex. 2. New superior segment LEFT lower lobe nodule measuring 5.9 mm. Indeterminate solid pulmonary nodule. Recommend follow-up chest CT in 6 months. 3. Mild peripheral interstitial fibrosis. 4. Ectatic, mildly aneurysmal ascending aorta at 4.1 cm. 5. Cholelithiasis without acute cholecystitis.
== END 2025-05-22 07:39 | disposition home or self-care (01) ==
LOC: RAD 07:39
PROVIDERS: PCP Family Medicine; Visit Provider Family Medicine
DX: M54.9 Dorsalgia, unspecified (principal); G89.29 Other chronic pain; R91.1 Solitary pulmonary nodule; J84.10 Pulmonary fibrosis, unspecified; I71.21 Aneurysm of the ascending aorta, without rupture; K80.20 Calculus of gallbladder without cholecystitis without obstruction; M47.817 Spondylosis without myelopathy or radiculopathy, lumbosacral region; M51.360 Other intervertebral disc degeneration, lumbar region with discogenic back pain only
CPT/HCPCS: 71250; 72148

== ENCOUNTER → 2025-07-15 12:56 | Outpatient (BNVA) | payer MEDICARE, OTHER, SELFPAY | PROVIDERS: PCP Family Medicine; Visit Provider Family Medicine | DX: I10 Essential (primary) hypertension (principal); I73.9 Peripheral vascular disease, unspecified; E78.5 Hyperlipidemia, unspecified; M79.10 Myalgia, unspecified site; M54.9 Dorsalgia, unspecified; G89.29 Other chronic pain | CPT/HCPCS: 80053; 85025; 86140; 86160; 86162; 86235; 86255; 86376; 86431; 86618; 86666; 86757 ==